=== PATIENT | male | born 1945 | race Caucasian/White ===

== ENCOUNTER 2016-12-04 12:10 | Emergency (ER) | payer MEDICARE, OTHER ==
[2016-12-04 12:15] VITALS: BP 135/77
--- NOTE | 2016-12-04 12:32 | ED Physician Documentation ---
PD HPI HEENT - Stated complaint Stated Complaint: THROAT IRRITATION,SWELLING - Chief complaint Chief Complaint: Heent - History obtained from History obtained from: Patient - History of Present Illness Timing - onset: How many days ago (2-3) Timing - duration: Days Timing - details: Gradual onset, Still present Location: Throat (he is having throat irritation, cough and intermittent feeling of bronchial/throat closing/tightness. Had been Dx with bronchial spasms in the past. Not improved with Albuterol MDI in the past. He says he has some malaise feeling and did not have particular allergen exposure (was not doing yardwork, etc).) Associated symptoms: Congestion, Cough. No: Fever, Swollen nodes, Facial swelling Similar symptoms before: Diagnosis (bronchial spasms, but not Dx with asthma) Recently seen: Not recently seen Review of Systems Constitutional: reports: Myalgias. denies: Fever, Chills Nose: reports: Congestion, Sinus pressure / pain Throat: denies: Sore throat (but feeling scratchy, per patient) Respiratory: reports: Cough GI: denies: Nausea, Vomiting, Diarrhea : denies: Dysuria, Frequency Skin: denies: Rash, Lesions Neurologic: denies: Generalized weakness Endocrine: denies: Weight loss PD PAST MEDICAL HISTORY - Past Medical History Cardiovascular: None Respiratory: None Neuro: None Endocrine/Autoimmune: None GI: GERD, Hiatal hernia : Benign prostate hypertrophy, Incontinence HEENT: None Psych: None Musculoskeletal: None Derm: None - Past Surgical History General: Hiatal hernia repair - Present Medications Home Medications: Ambulatory Orders Medication Instructions Recorded Confirmed Tamsulosin [Flomax] 0.4 mg PO DAILY 12/20/13 12/04/16 Aspirin 81 mg PO DAILY #30 bottle 10/03/14 12/04/16 Albuterol Sulfate [Proair Hfa 2 puffs IH QID #1 hfa.aer.ad 12/04/16 Inhaler] Dexamethasone [Decadron] 4 mg PO DAILY #5 tablet 12/04/16 Magnesium Oxide 400 mg PO DAILY #30 tablet 12/04/16 - Allergies Allergies/Adverse Reactions: Allergies Allergy/AdvReac Type Severity Reaction Status Date / Time No Known Drug Allergies Allergy Verified 12/20/13 05:33 - Social History Does the pt smoke?: No Smoking Status: Never smoker PD ED PE NORMAL - Vitals Vital signs reviewed: Yes - General General: Alert and oriented X 3, No acute distress, Well developed/nourished - HEENT HEENT: Ears normal, Moist mucous membranes, Pharynx benign - Neck Neck: Supple, no meningeal sign, No adenopathy - Cardiac Cardiac: RRR, No murmur - Respiratory Respiratory: Clear bilaterally - Abdomen Abdomen: Soft, Non tender - Derm Derm: Normal color, Warm and dry - Neuro Neuro: Alert and oriented X 3, No motor deficit, Normal speech Results - Vitals Vitals: Vital Signs - 24 hr 12/04/16 12:13 Temperature 36.9 C Heart Rate 91 Respiratory 16 Rate Blood Pressure 135/77 H O2 Saturation 96 Oxygen O2 Source Room air PD MEDICAL DECISION MAKING - ED course Complexity details: considered differential, d/w patient (he says he has had bronchial spasms with irritation/ colds at times in the past. Albuterol inhaler has not really helped in the past. He does have more URI symptoms now, so consider trying it anyway, along with steroids for irritation of URI. Could try Mag as smooth muscle relaxant. ) Departure - Departure Disposition: 01 Home, Self Care Clinical Impression: Bronchial spasms, Cough Condition: Stable Record reviewed to determine appropriate education?: Yes Instructions: ED Dyspnea Shortness of Breath Follow-Up: Gino Mojica MD [Primary Care Provider] - Prescriptions: Dexamethasone [Decadron] 4 mg PO DAILY #5 tablet Magnesium Oxide 400 mg PO DAILY #30 tablet Albuterol Sulfate [Proair Hfa Inhaler] 2 puffs IH QID #1 hfa.aer.ad Comments: Drink adequate fluids. Decadron steroid daily for 5 more days to get inflammation down. Use Albuterol inhaler 2 puffs 4 times daily for a week and added times as needed for spasms. Magnesium daily for 1-2 weeks as smooth muscle relaxant for the bronchioles. Recheck with PMD if not improved over the next several days, sooner if worsening. Discharge Date/Time: 12/04/16 13:09
[2016-12-04] MEDS ORDERED: MAGNESIUM OXIDE 400 MG TABLET PO STA (12:55)
[2016-12-04] MEDS ORDERED: DEXAMETHASONE 10 MG/ML VIAL PO STA (12:55)
[2016-12-04] MEDS ORDERED: MAGNESIUM OXIDE 400 MG TABLET PO ONE (12:59)
[2016-12-04] MEDS ORDERED: DEXAMETHASONE 10 MG/ML VIAL ONE (12:59)
[2016-12-04] MEDS ORDERED: CHERRY SYRUP 10 ML UDC PO ONE (12:59)
== END 2016-12-04 13:09 | disposition home or self-care (01) ==
LOC: ED 12:10
DX: J98.01 Acute bronchospasm (principal); J06.9 Acute upper respiratory infection, unspecified; Z79.82 Long term (current) use of aspirin
CPT/HCPCS: 99283; A9270

== ENCOUNTER 2017-07-16 15:14 | Outpatient (CLI) | payer MEDICARE, OTHER | END 2017-07-16 15:15 | disposition critical access hospital (66) | LOC: EMS 15:14 | PROVIDERS: ATTEND Surgery | DX: Z04.1 Encounter for examination and observation following transport accident (principal); V49.40XA Driver injured in collision with unspecified motor vehicles in traffic accident, initial encounter; Y92.414 Local residential or business street as the place of occurrence of the external cause | CPT/HCPCS: A0425; A0429 ==

== ENCOUNTER 2017-07-16 15:36 | Emergency (ER) | payer MEDICARE, OTHER ==
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
[2017-07-16] MEDS ORDERED: LORazepam 0.5 MG TABLET PO STA (16:45)
[2017-07-16] MEDS ORDERED: ACETAMINOPHEN 325 MG TABLET PO STA (16:45)
[2017-07-16 17:43] VITALS: BP 137/100
== END 2017-07-16 17:40 | disposition home or self-care (01) ==
LOC: EDBD → EDUNIT# → ED 15:36
DX: Z04.1 Encounter for examination and observation following transport accident (principal); V43.52XA Car driver injured in collision with other type car in traffic accident, initial encounter
CPT/HCPCS: 99282; 99283; A9270

== ENCOUNTER 2018-02-06 20:46 | Outpatient (CLI) | payer MEDICARE, OTHER ==
--- NOTE | 2018-02-07 03:25 | XRAY Report ---
Reason: OTHER CHEST PAIN R07.89 Procedure Date: 02/06/2018 Accession Number: [id number] / [id number] Procedure: XR - Chest 2 View X-Ray CPT Code: 30924 FULL RESULT: EXAM: CHEST RADIOGRAPHY EXAM DATE: 02/06/2018 09:01 PM. CLINICAL HISTORY: OTHER CHEST PAIN R07. 89. COMPARISON: 07/11/2007. TECHNIQUE: 2 views. FINDINGS: Lungs/Pleura: No focal opacities evident. No pleural effusion. No pneumothorax. Normal volumes. Mediastinum: Heart and mediastinal contours are unremarkable. Other: Posterior left diaphragmatic eventration. IMPRESSION: No evidence of acute cardiopulmonary disease. RADIA
== END 2018-02-06 20:47 | disposition home or self-care (01) ==
LOC: DI 20:46
PROVIDERS: ATTEND Family Medicine
DX: R07.89 Other chest pain (principal)
CPT/HCPCS: 71046

== ENCOUNTER 2018-10-26 22:48 | Emergency (ER) | payer MEDICARE, OTHER ==
[2018-10-26 22:57] VITALS: BP 169/89
--- NOTE | 2018-10-26 23:32 | ED Physician Documentation ---
PD HPI UPPER EXT INJURY - Stated complaint Stated Complaint: HEAD INJ - Chief complaint Chief Complaint: Laceration - History obtained from History obtained from: Patient - History of Present Illness Location: Right (thumb) Type of injury: Puncture wound Where injury occurred: Home Timing - onset: How many weeks ago (1) Timing - duration: Days Timing - details: Gradual onset Improved by: Rest Worsened by: Moving, Palpating Associated symptoms: Swelling. No: Weakness, Numbness Similar symptoms before: Has not had sx before Recently seen: Not recently seen - Additonal information Additional information: c/o increasing pain, swelling right thumb x few days. one week ago, a sliver from a piece of particle board punctured into his right thumb at the proximal nail fold. he was able to remove the sliver but has had increasing pain and swelling past 2-3 days Review of Systems Constitutional: reports: Reviewed and negative Skin: reports: Reviewed and negative Musculoskeletal: reports: Extremity pain, Extremity swelling Neurologic: denies: Focal weakness, Numbness PD PAST MEDICAL HISTORY - Past Medical History Past Medical History: Yes Cardiovascular: None Respiratory: None Endocrine/Autoimmune: None GI: GERD, Hiatal hernia : Benign prostate hypertrophy, Incontinence HEENT: None Psych: None Musculoskeletal: None Derm: None - Past Surgical History Past Surgical History: Yes General: Hiatal hernia repair - Present Medications Home Medications: Ambulatory Orders Medication Instructions Recorded Confirmed Tamsulosin [Flomax] 0.4 mg PO DAILY 12/20/13 10/26/18 Aspirin 81 mg PO DAILY #30 bottle 10/03/14 10/26/18 Cephalexin [Keflex] 500 mg PO Q6H #28 capsule 10/26/18 Hydrocodone/Acetaminophen 1 - 2 each PO Q6H PRN #14 tablet 10/26/18 [Hydrocodon-Acetaminophen 5-325] - Allergies Allergies/Adverse Reactions: Allergies Allergy/AdvReac Type Severity Reaction Status Date / Time No Known Drug Allergies Allergy Verified 10/26/18 22:57 - Social History Does the pt smoke?: No Smoking Status: Never smoker Does the pt drink ETOH?: No Does the pt have substance abuse?: No - Immunizations Immunizations are current?: No Immunizations: TDAP >10years/unknown - POLST Patient has POLST: No PD ED PE NORMAL - Vitals Vital signs reviewed: Yes - General General: Alert and oriented X 3, No acute distress, Well developed/nourished - Derm Derm: Warm and dry PD ED PE EXPANDED - Extremities Extremities: Other (mild erythema, swelling, moderate tenderness right thumb predominantly at lateral corner of proximal nail fold. no FB visualized including with transillumination and magnifying lens (from otoscope)) Results - Vitals Vitals: Oxygen O2 Source Room air PD MEDICAL DECISION MAKING - ED course Complexity details: considered differential, d/w patient Departure - Departure Disposition: 01 Home, Self Care Clinical Impression: Infection of thumb Condition: Good Instructions: ED Fingernail Infec Follow-Up: Gino Mojica MD [Primary Care Provider] - (within 3 days ) Prescriptions: Cephalexin [Keflex] 500 mg PO Q6H #28 capsule Hydrocodone/Acetaminophen [Hydrocodon-Acetaminophen 5-325] 1 - 2 each PO Q6H PRN #14 tablet PRN Reason: pain Discharge Date/Time: 10/26/18 23:50
[2018-10-26] MEDS ORDERED: cephALEXin 250 MG CAPSULE PO STA (23:35)
[2018-10-26] MEDS ORDERED: IBUPROFEN 600 MG TABLET PO STA (23:35)
[2018-10-26] MEDS ORDERED: HYDROcod/ACET 5/325 Prepack 4 PO STA (23:35)
[2018-10-26] MEDS ORDERED: TETANUS/DIPHTHERIA/PERTUSSIS 0.5 ML SYRINGE IM ONE (23:37)
== END 2018-10-26 23:50 | disposition home or self-care (01) ==
LOC: ED 22:48
DX: L08.9 Local infection of the skin and subcutaneous tissue, unspecified (principal)
CPT/HCPCS: 90471; 90715; 99283; A9270

== ENCOUNTER 2019-07-22 12:19 | Outpatient (CLI) | payer MEDICARE, OTHER ==
--- NOTE | 2019-07-23 00:22 | XRAY Report ---
Reason: ACUTE BRONCHITIS Procedure Date: 07/22/2019 Accession Number: [id number] / [id number] Procedure: XRN - Chest 2 View X-Ray CPT Code: 83976 Final Report FULL RESULT: EXAM: CHEST RADIOGRAPHY EXAM DATE: 07/22/2019 12:42 PM. CLINICAL HISTORY: ACUTE BRONCHITIS. COMPARISON: CHEST 2 VIEW 02/06/2018 8:51 PM. TECHNIQUE: 2 views. FINDINGS: Lungs/Pleura: There appears to be mild right middle lobe airspace disease, could represent mild pneumonia. No consolidation, pleural effusion or pneumothorax. Mediastinum: Heart and mediastinal contours are unremarkable. Other: Mild elevation left hemidiaphragm again noted. IMPRESSION: There appears to be mild right middle lobe airspace disease, could represent mild pneumonia. RADIA
== END 2019-07-22 12:20 | disposition home or self-care (01) ==
LOC: DI.N 12:19
PROVIDERS: ATTEND Internal Medicine
DX: J20.9 Acute bronchitis, unspecified (principal); R91.8 Other nonspecific abnormal finding of lung field
CPT/HCPCS: 71046

== ENCOUNTER 2019-12-20 03:09 | Outpatient (CLI) | payer MEDICARE, OTHER | END 2019-12-20 03:10 | disposition critical access hospital (66) | LOC: EMS 03:09 | PROVIDERS: ATTEND Surgery | DX: R10.31 Right lower quadrant pain (principal) | CPT/HCPCS: A0425; A0429 ==

== ENCOUNTER 2019-12-20 03:28 | Emergency (ER) | payer MEDICARE, OTHER ==
--- NOTE | 2019-12-20 03:17 | ED Physician Documentation ---
History of Present Illness - Stated complaint Stated Complaint: RLQ PAIN - History obtained from History obtained from: Patient (The patient is a 74-year-old male who arrives by ambulance with a chief complaint of right lower quadrant pain and thinks he has appendicitis.He denies any other complaints.) Review of Systems Constitutional: reports: Reviewed and negative Eyes: reports: Reviewed and negative Ears: reports: Reviewed and negative Nose: reports: Reviewed and negative Throat: reports: Reviewed and negative Cardiac: reports: Reviewed and negative Respiratory: reports: Reviewed and negative GI: reports: Abdominal Pain : reports: Reviewed and negative Skin: reports: Reviewed and negative Musculoskeletal: reports: Reviewed and negative Neurologic: reports: Reviewed and negative Psychiatric: reports: Reviewed and negative Endocrine: reports: Reviewed and negative Immunocompromised: reports: Reviewed and negative PD PAST MEDICAL HISTORY - Present Medications Home Medications: Ambulatory Orders Medication Instructions Recorded Confirmed Tamsulosin [Flomax] 0.4 mg PO DAILY 12/20/13 12/20/19 Aspirin 81 mg PO DAILY #30 bottle 10/03/14 12/20/19 - Allergies Allergies/Adverse Reactions: Allergies Allergy/AdvReac Type Severity Reaction Status Date / Time No Known Drug Allergies Allergy Verified 12/20/19 03:36 PD ED PE NORMAL - Vitals Vital signs reviewed: Yes - General General: Alert and oriented X 3, No acute distress - HEENT HEENT: PERRL - Neck Neck: Supple, no meningeal sign - Cardiac Cardiac: RRR, No murmur - Respiratory Respiratory: Clear bilaterally - Abdomen Abdomen: Normal bowel sounds, Soft, Non distended, Other (Tenderness in the right lower quadrant.No peritoneal signs.) - Male Male : Other (Circumcised, testiclesDescended bilaterally. Normal cremaster no blood at the urethral meatus no inguinal lymphadenopathy negative for hernias.) - Derm Derm: Warm and dry - Extremities Extremities: No deformity - Neuro Neuro: Alert and oriented X 3 - Psych Psych: Normal mood, Normal affect Results - Vitals Vitals: Vital Signs - 24 hr 12/20/19 12/20/19 12/20/19 03:36 03:38 04:47 Temperature 36.9 C Heart Rate 79 80 74 Respiratory 18 18 16 Rate Blood Pressure 165/91 H 165/91 H 143/92 H O2 Saturation 98 98 100 Oxygen O2 Source Room air - Labs Labs: Laboratory Tests 12/20/19 12/20/19 12/20/19 02:45 02:45 02:45 WBC 5.7 RBC 4.40 L Hgb 13.7 L Hct 41.2 L MCV 93.6 MCH 31.1 H MCHC 33.3 RDW 12.6 Plt Count 156 MPV 9.9 Neut # (Auto) 2.8 Lymph # (Auto) 2.2 [place] # (Auto) 0.5 Eos # (Auto) 0.1 Baso # (Auto) 0.1 Absolute Nucleated RBC 0.00 Nucleated RBC % 0.0 PT 14.3 H INR 1.3 H APTT 30.2 Sodium 139 Potassium 3.6 Chloride 100 L Carbon Dioxide 26 Anion Gap 13.0 BUN 23 H Creatinine 0.9 Estimated GFR (MDRD) 82 L Glucose 114 H Lactic Acid Calcium 8.6 Total Bilirubin 0.3 AST 14 ALT 14 Alkaline Phosphatase 57 Total Creatine Kinase 86 Total Protein 6.3 L Albumin 4.0 Globulin 2.3 Albumin/Globulin Ratio 1.7 Lipase 35 Urine Color Urine Clarity Urine pH Ur Specific [place] Urine Protein Urine Glucose (UA) Urine Ketones Urine Occult Blood Urine Nitrite Urine Bilirubin Urine Urobilinogen Ur Leukocyte Esterase Ur Microscopic Review Urine Culture Comments 12/20/19 12/20/19 02:45 04:50 WBC RBC Hgb Hct MCV MCH MCHC RDW Plt Count MPV Neut # (Auto) Lymph # (Auto) [place] # (Auto) Eos # (Auto) Baso # (Auto) Absolute Nucleated RBC Nucleated RBC % PT INR APTT Sodium Potassium Chloride Carbon Dioxide Anion Gap BUN Creatinine Estimated GFR (MDRD) Glucose Lactic Acid 1.6 Calcium Total Bilirubin AST ALT Alkaline Phosphatase Total Creatine Kinase Total Protein Albumin Globulin Albumin/Globulin Ratio Lipase Urine Color YELLOW Urine Clarity CLEAR Urine pH 7.0 Ur Specific [place] 1.015 Urine Protein NEGATIVE Urine Glucose (UA) NEGATIVE Urine Ketones NEGATIVE Urine Occult Blood NEGATIVE Urine Nitrite NEGATIVE Urine Bilirubin NEGATIVE Urine Urobilinogen 1 (NORMAL) Ur Leukocyte Esterase NEGATIVE Ur Microscopic Review NOT INDICATED Urine Culture Comments NOT INDICATED PD MEDICAL DECISION MAKING - ED course Complexity details: reviewed old records, reviewed results, re-evaluated patient (ct scan shows Similar small fat-containing proximal right inguinal herniaAnd constipation), considered differential (hernia, Nephrolithiasis, urinary retention, appendicitis), d/w patient Departure - Departure Disposition: 01 Home, Self Care Clinical Impression: RLQ abdominal pain, Right inguinal hernia Condition: Stable Instructions: ED Hernia Inguinal Follow-Up: Gino Mojica MD [Primary Care Provider] - Tomorrow Comments: Follow-up with your primary care provider tomorrow.
[2019-12-20 03:55] LABS: BASOPHILS # (AUTO) 0.1 10^3/uL (0.0-0.1); BASOPHILS % (AUTO) 0.9 %; EOSINOPHILS # (AUTO) 0.1 10^3/uL (0.0-0.7); EOSINOPHILS % (AUTO) 2.3 %; HGB - HEMOGLOBIN 13.7 g/dL (14.0-18.0); LYMPHOCYTES # (AUTO) 2.2 10^3/uL (1.5-3.5); LYMPHOCYTES % (AUTO) 38.6 %; MEAN CORPUSCULAR HEMOGLOBIN 31.1 pg (27.0-31.0); MEAN CORPUSCULAR HGB CONC 33.3 g/dL (32.0-36.0); MEAN CORPUSCULAR VOLUME 93.6 fL (80.0-94.0); MEAN PLATELET VOLUME 9.9 fL (7.4-11.4); MONOCYTES # (AUTO) 0.5 10^3/uL (0.0-1.0); MONOCYTES % (AUTO) 9.2 %; NEUTROPHILS # (AUTO) 2.8 10^3/uL (1.5-6.6); NEUTROPHILS % (AUTO) 48.5 %; PLT - PLATELET COUNT 156 10^3/uL (130-450); RED CELL DISTRIBUTION WIDTH 12.6 % (12.0-15.0); WHITE BLOOD COUNT 5.7 x10^3/uL (4.8-10.8)
[2019-12-20 04:02] LABS: INR 1.3 (0.8-1.2); PT - PROTHROMBIN TIME 14.3 secs (9.9-12.6)
[2019-12-20] MEDS ORDERED: IOVERSOL 320 100 ML VIAL IVP ONE ×2 (04:02→04:59)
[2019-12-20 04:09] LABS: ALBUMIN/GLOBULIN RATIO 1.7 (1.0-2.2); BILIRUBIN,TOTAL 0.3 mg/dL (0.2-1.0); CALCIUM 8.6 mg/dL (8.5-10.3); CREATININE 0.9 mg/dL (0.6-1.2); PARTIAL THROMBOPLASTIN TIME 30.2 secs (24.9-33.3); TOTAL PROTEIN 6.3 g/dL (6.7-8.2)
[2019-12-20 04:55] LABS: BILIRUBIN,URINE NEGATIVE (NEGATIVE); GLUCOSE, URINE (UA) NEGATIVE (NEGATIVE); KETONES,URINE (UA) NEGATIVE (NEGATIVE); LEUKOCYTE ESTERASE, URINE NEGATIVE (NEGATIVE); NITRITE,URINE NEGATIVE (NEGATIVE); OCCULT BLOOD,URINE NEGATIVE (NEGATIVE); PROTEIN,URINE NEGATIVE (NEGATIVE); UROBILINOGEN,URINE 1 (NORMAL) E.U./dL (NORMAL)
[2019-12-20 04:56] LABS: CLARITY,URINE CLEAR (CLEAR)
[2019-12-20 05:44] VITALS: BP 121/78
--- NOTE | 2019-12-20 09:30 | CT Report ---
PROCEDURE: Abdomen/Pelvis W INDICATIONS: RLQ PAIN CONTRAST: IV CONTRAST: Optiray 320 ml: 100 PO CONTRAST: *NO PO CONTRAST TECHNIQUE: After the administration of oral and intravenous contrast, 5 mm thick sections acquired from the diap hragms to the symphysis. 5 mm thick coronal and sagittal reformats were acquired. For radiation dos e reduction, the following was used: automated exposure control, adjustment of mA and/or kV accordin g to patient size. COMPARISON: CT abdomen pelvis 12/20/2013, ultrasound abdomen 01/31/2014 FINDINGS: Image quality: Excellent. ABDOMEN: Lung bases: Lung bases are clear. Heart size is normal. Solid organs: Liver and spleen are normal in size . Unchanged punctate low-attenuation focus within the posterior right hepatic lobe, unchanged. Gallbladder is unremarkable Biliary system is non dila lindsay. Pancreas enhances normally. No adrenal nodules. Kidneys demonstrate normal size and enhanceme nt, without hydronephrosis. There is incidental note of retroaortic left renal vein. Peritoneum and bowel: Bowel loops demonstrate normal wall thickness and caliber. No free fluid or a ir. Prominent colonic diverticula are present without associated inflammatory change. Appendix is vi sualized and is within normal limits in size. Nodes and vessels: No retroperitoneal or mesenteric adenopathy by size criteria. Aorta and inferior vena cava are normal in size. Miscellaneous: No ventral hernias. PELVIS: Genitourinary: Bladder wall thickness is normal. Prostate is enlarged. Miscellaneous: Fat-containing inguinal hernias are present. Bones: No suspicious bony lesions. No vertebral body compression fractures. IMPRESSION: 1. Appendix is normal. 2. Diverticulosis. 3. Fat-containing inguinal hernias. It is noted that the right fat-containing inguinal hernia corresp onds to marker indicating area of palpable symptom. The above findings are concordant with preliminary report. Reviewed by: Erum Gray MD on 12/20/2019 9:28 AM PDT Approved by: Erum Gray MD on 12/20/2019 9:28 AM PDT Station ID: [id number]
== END 2019-12-20 05:49 | disposition home or self-care (01) ==
LOC: EDUNIT# → ED 03:28
DX: R10.31 Right lower quadrant pain (principal); K40.90 Unilateral inguinal hernia, without obstruction or gangrene, not specified as recurrent; Z79.82 Long term (current) use of aspirin
CPT/HCPCS: 36415; 74177; 80053; 81003; 82550; 83605; 83690; 85025; 85610; 85730; 99283; 99284; Q9967; 80320; 81001; 87086

== ENCOUNTER 2020-02-26 14:59 | Outpatient (CLI) | payer MEDICARE, OTHER ==
--- NOTE | 2020-02-26 16:27 | XRAY Report ---
PROCEDURE: Chest 2 View X-Ray INDICATIONS: BRONCHOSPASM TECHNIQUE: 2 view(s) of the chest. COMPARISON: Chest x-ray dated 07.22.19 FINDINGS: Surgical changes and devices: None. Lungs and pleura: No pleural effusions or pneumothorax. Lungs are clear. Mediastinum: Mediastinal contours are normal. Heart size is normal. Bones and chest wall: No suspicious bony abnormalities. Soft tissues appear unremarkable. IMPRESSION: No acute process. Reviewed by: Micheal Warren MD on 02/26/2020 4:25 PM PDT Approved by: Micheal Warren MD on 02/26/2020 4:25 PM PDT Station ID: [id number]
== END 2020-02-26 15:00 | disposition home or self-care (01) ==
LOC: DI 14:59
PROVIDERS: ATTEND Family Medicine
DX: J98.01 Acute bronchospasm (principal)
CPT/HCPCS: 71046

== ENCOUNTER 2020-09-23 14:49 | Outpatient (CLI) | payer MEDICARE, OTHER ==
--- NOTE | 2020-09-23 16:07 | XRAY Report ---
PROCEDURE: Foot 3 View RT INDICATIONS: RT FOOT PAIN TECHNIQUE: 3 views of the foot were acquired. COMPARISON: None FINDINGS: Bones: No fractures or dislocations. No suspicious bony lesions. Soft tissues: No tibiotalar joint effusion. Achilles tendon appears normal. IMPRESSION: No acute fracture. No osseous lesion. If symptoms and/or clinical suspicion for pathology continue, f urther assessment with repeat plain films, or advanced imaging (e.g., CT, MRI, or bone scan) is recom mended for further assessment. Reviewed by: Micheal Warren MD on 09/23/2020 4:05 PM PDT Approved by: Micheal Warren MD on 09/23/2020 4:05 PM PDT Station ID: [id number]
== END 2020-09-23 14:50 | disposition home or self-care (01) ==
LOC: DI.N 14:49
PROVIDERS: ATTEND Family Medicine
DX: M72.2 Plantar fascial fibromatosis (principal)

== ENCOUNTER 2021-09-11 08:00 | Outpatient (CLI) | payer MEDICARE, OTHER | END 2021-09-11 23:59 | disposition home or self-care (01) | LOC: LAB.N 08:00 | PROVIDERS: ATTEND Nurse Practitioner | DX: R31.9 Hematuria, unspecified (principal) | CPT/HCPCS: 87086 ==

== ENCOUNTER 2022-11-20 08:00 | Outpatient (CLI) | payer MEDICARE, OTHER ==
[2022-11-20] MEDS ORDERED: iohexoL-300 100 ML VIAL ONE (14:24)
[2022-11-20 14:39] LABS: ALBUMIN 4.1 g/dL (3.2-5.5); ALBUMIN/GLOBULIN RATIO 1.5 (1.0-2.2); BILIRUBIN,TOTAL 0.7 mg/dL (0.2-1.0); CALCIUM 8.3 mg/dL (8.5-10.3); CREATININE 0.9 mg/dL (0.6-1.2); POTASSIUM 4.2 mmol/L (3.5-5.0); TOTAL PROTEIN 6.8 g/dL (6.7-8.2)
== END 2022-11-20 23:59 | disposition home or self-care (01) ==
LOC: LAB 08:00
PROVIDERS: ATTEND Urology
DX: N28.89 Other specified disorders of kidney and ureter (principal)
CPT/HCPCS: 36415; 80053

== ENCOUNTER 2022-11-27 13:30 | Outpatient (CLI) | payer MEDICARE, OTHER ==
[2022-11-27] MEDS ORDERED: iohexoL-300 100 ML VIAL ONE (13:38)
[2022-11-27] MEDS ORDERED: iohexoL-300 100 ML VIAL IVP ONE (15:14)
--- NOTE | 2022-11-27 17:13 | CT Report ---
PROCEDURE: ABDOMEN W/WO INDICATIONS: RENAL MASS CONTRAST: 140mL Omni 300 TECHNIQUE: [address] scan of the kidneys was performed. Non-contrast and multiphasic contrast images were recor ded and evaluated at appropriate window settings. Reformats: coronal and sagittal. For radiation dose reduction, the following was used: automated exposure control, adjustment of mA and/or kV according to patient size. COMPARISON: CT FINDINGS: Image quality: Excellent. Genitourinary: On the inferior pole of the right kidney, there is a 1.6 cm exophytic lesion with rel atively homogeneous attenuation, but with delayed enhancement. No evidence of extension beyond the pa rarenal fascia. No invasion of the renal vein. This was present in 2019, but demonstrate homogeneous low attenuation and was too small to characterize at the time (measuring 1 cm). OTHER: Lung bases and heart: Unremarkable. Liver: No solid mass. Gallbladder and biliary tree: No radiopaque stones or wall thickening. No biliary dilation. Spleen: No splenomegaly. Pancreas: No pancreatic ductal dilation. Adrenals: No adrenal nodule. Bowel and peritoneum: No bowel distension. No pathologic free fluid. Diverticulosis without evidence of diverticulitis. Lymph nodes: No central or retroperitoneal adenopathy. Vessels: No infrarenal aortic aneurysm. Bones: No aggressive osseous abnormality. Other: No significant ventral hernia. IMPRESSION: Exophytic lesion on the inferior pole of the right kidney, there is a 1.6 and meter exophytic lesion with delayed enhancement, suggesting papillary renal cell carcinoma. No evidence of perirenal fascia invasion or renal vein invasion. No adenopathy. Other chronic findings as above. Reviewed by: Rios Felipe on 11/27/2022 5:12 PM PDT Approved by: Rios Felipe on 11/27/2022 5:12 PM PDT Station ID: [id number]
== END 2022-11-27 13:31 | disposition home or self-care (01) ==
LOC: DI 13:30
PROVIDERS: ATTEND Urology
DX: N28.9 Disorder of kidney and ureter, unspecified (principal); K57.30 Diverticulosis of large intestine without perforation or abscess without bleeding
CPT/HCPCS: 74170; Q9967

== ENCOUNTER 2023-02-01 15:07 | Outpatient (CLI) | payer MEDICARE, OTHER ==
--- NOTE | 2023-02-01 20:39 | XRAY Report ---
PROCEDURE: Chest 2 View X-Ray INDICATIONS: COPD TECHNIQUE: 2 views of the chest were acquired. COMPARISON: Chest x-ray 02/26/2020 FINDINGS: Surgical changes and devices: None. Lungs and pleura: No pleural effusions or pneumothorax. Lungs are clear. Elevated left hemidiaphr agm. Multicentric mild hyperexpansion suggestive of COPD. Mediastinum: Mediastinal contours appear normal. Heart size is normal. Bones and chest wall: No suspicious bony lesions. Overlying soft tissues appear unremarkable. IMPRESSION: No acute cardiopulmonary process. Reviewed by: Erum Gray MD on 02/01/2023 8:37 PM PDT Approved by: Erum Gray MD on 02/01/2023 8:37 PM PDT Station ID: [id number]
== END 2023-02-01 15:08 | disposition home or self-care (01) ==
LOC: DI 15:07
PROVIDERS: ATTEND Urology
DX: J44.9 Chronic obstructive pulmonary disease, unspecified (principal)

== ENCOUNTER 2023-07-22 14:00 | Outpatient (CLI) | payer MEDICARE, OTHER ==
--- NOTE | 2023-07-24 11:51 | Ultrasound Report ---
PROCEDURE: Renal (Retroperitoneal) INDICATIONS: RENAL MASS TECHNIQUE: Real-time scanning was performed of the retroperitoneal organs, with image documentation. COMPARISON: None. FINDINGS: Kidneys: Kidneys are normal in size. Right kidney measures 11.6 cm long; left kidney measures 12.3 cm long. Right renal cortical thickness is 1.0 cm; left renal cortical thickness is 0.9 cm. There is a hypoechoic focus within the superior aspect of the right kidney measuring approximately 3.1 cm. It is identified in the medial aspect. There is no directly identified correlated on CT exam to this re gion. The focus in question in the right kidney on CT is located in the inferior pole. This does not appear to be demonstrated on ultrasound images. Bladder: Pre-void bladder volume is 245 mL. Post-void residual is 80 mL. Pre-void images demonstra te no intraluminal masses or stones. On pre-void images, bilateral ureteral jets are noted with colo r Doppler interrogation. (Of note, ureteral jets may not be detectable in up to 25% of cases due to insufficient differences in specific gravity between ureteral and bladder urine). Prostate gland is enlarged. Miscellaneous: No free abdominal fluid. IMPRESSION: Inferior right renal pole mass identified on CT was not clearly identified on current ultrasound. In addition, a focus of decreased echogenicity was identified in the superior right renal pole not corre sponding to defined abnormality on CT. It is recommended that patient return for repeat imaging for b mary correlation between ultrasound and CT findings. Reviewed by: Erum Gray MD on 07/24/2023 11:50 AM [facility] Approved by: Erum Gray MD on 07/24/2023 11:50 AM PST Station ID: [id number]
== END 2023-07-22 14:01 | disposition home or self-care (01) ==
LOC: DI 14:00
PROVIDERS: ATTEND Urology
DX: N28.89 Other specified disorders of kidney and ureter (principal)

== ENCOUNTER 2023-08-02 12:12 | Outpatient (CLI) | payer MEDICARE, OTHER ==
[2023-08-02 17:48] LABS: BASOPHILS # (AUTO) 0.1 10^3/uL (0.0-0.1); EOSINOPHILS # (AUTO) 0.1 10^3/uL (0.0-0.7); EOSINOPHILS % (AUTO) 2.5 %; HCT - HEMATOCRIT 43.9 % (42.0-52.0); LYMPHOCYTES # (AUTO) 1.7 10^3/uL (1.5-3.5); LYMPHOCYTES % (AUTO) 34.4 %; MEAN CORPUSCULAR HEMOGLOBIN 30.2 pg (27.0-31.0); MEAN CORPUSCULAR HGB CONC 31.9 g/dL (32.0-36.0); MEAN CORPUSCULAR VOLUME 94.6 fL (80.0-94.0); MONOCYTES # (AUTO) 0.4 10^3/uL (0.0-1.0); MONOCYTES % (AUTO) 7.5 %; NEUTROPHILS # (AUTO) 2.6 10^3/uL (1.5-6.6); NEUTROPHILS % (AUTO) 54.2 %; PLT - PLATELET COUNT 184 10^3/uL (130-450); RED BLOOD COUNT 4.64 10^6/uL (4.70-6.10); RED CELL DISTRIBUTION WIDTH 12.8 % (12.0-15.0); WHITE BLOOD COUNT 4.8 x10^3/uL (4.8-10.8)
[2023-08-02 18:06] LABS: ALBUMIN 4.4 g/dL (3.2-5.5); ALBUMIN/GLOBULIN RATIO 1.8 (1.0-2.2); ALKALINE PHOSPHATASE 61 IU/L (42-121); ALT ALANINE AMINOTRANSFERASE 15 IU/L (10-60); AST ASPARTATE AMINOTRANSFERASE 14 IU/L (10-42); BILIRUBIN,TOTAL 0.7 mg/dL (0.2-1.0); BUN - BLOOD UREA NITROGEN 21 mg/dL (6-20); CARBON DIOXIDE - CO2 29 mmol/L (21-32); CHLORIDE 105 mmol/L (101-111); CHOL/HDL RATIO 3.4 (<5.0); CHOLESTEROL 192 mg/dL; CREATININE 0.7 mg/dL (0.6-1.3); GFR - MDRD 109 (>89); GLUCOSE 98 mg/dL (74-104); HDL CHOLESTEROL 57 mg/dL; LDL CHOLESTEROL,CALCULATED 118 mg/dL; LDL/HDL RATIO 2.1 (<3.6); MAGNESIUM 1.7 mg/dL (1.7-2.3); POTASSIUM 3.9 mmol/L (3.5-4.5); SODIUM 138 mmol/L (135-145); TOTAL PROTEIN 6.8 g/dL (6.4-8.9); TRIGLYCERIDES 84 mg/dL (48-352); VLDL CHOLESTEROL 17 mg/dL
[2023-08-02 18:20] LABS: THYROID STIMULATING HORMONE 1.71 uIU/mL (0.34-5.60)
== END 2023-08-02 12:13 | disposition home or self-care (01) ==
LOC: LAB.N 12:12
PROVIDERS: ATTEND Family Medicine
DX: I10 Essential (primary) hypertension (principal); G24.1 Genetic torsion dystonia; E53.8 Deficiency of other specified B group vitamins; E55.9 Vitamin D deficiency, unspecified; I49.9 Cardiac arrhythmia, unspecified; Z12.5 Encounter for screening for malignant neoplasm of prostate; Z79.899 Other long term (current) drug therapy; R00.2 Palpitations
CPT/HCPCS: 36415; 80053; 80061; 82306; 82607; 82746; 83735; 84439; 84443; 84481; 85025; G0103; 83721; 84153

== ENCOUNTER 2024-01-30 11:43 | Outpatient (CLI) | payer MEDICARE, OTHER ==
[2024-01-30] MEDS ORDERED: GADOTERATE MEGLUMINE 10 MMOL/20 ML VIAL ONE (12:08)
[2024-01-30 12:09] LABS: CREATININE 0.8 mg/dL (0.6-1.3)
[2024-01-30] MEDS: GADOTERATE MEGLUMINE 10 MMOL/20 ML VIAL IVP ONE (13:29)
--- NOTE | 2024-01-30 17:06 | MRI Report ---
PROCEDURE: Abdomen W/WO INDICATIONS: RENAL MASS CONTRAST: CLARISCAN 18.2 ML TECHNIQUE: Coronal ultra fast SE, axial 2D spoiled GE in- and [id number]; axial breath-hold T2 fast SE. Dynam ic axial ultra fast GE during the administration of contrast; post-contrast coronal ultra fast GE or 2D spoiled GE with fat saturation from the hepatic dome to the iliac crests. Optional diffusion weig hted imaging and ADC may be performed. COMPARISON: Ultrasound 07/22/2023, CT 11/27/2022 FINDINGS: Image quality: Suboptimal due to motion artifact. Lung bases and heart: Unremarkable. Liver: No solid mass. Gallbladder and biliary tree: No radiopaque stones or wall thickening. No biliary dilation. Spleen: No splenomegaly. Pancreas: No pancreatic ductal dilation. Adrenals: No adrenal nodule. Kidneys and ureters: If the inferior pole of the right kidney, there is an exophytic mass which demon strates delayed enhancement, T2 isointense signal. The mass does not extend beyond the pararenal fasc ia. There is no renal vein invasion. Bowel and peritoneum: No bowel distension. No pathologic free fluid. Diverticulosis without evidence of diverticulitis. Lymph nodes: No central or retroperitoneal adenopathy. Vessels: No infrarenal aortic aneurysm. Bones: No aggressive osseous abnormality. Other: No significant ventral hernia. 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 No evidence of renal vein invasion. No extension beyond the renal fascia. Reviewed by: Rios Felipe MD on 01/30/2024 5:05 PM PDT Approved by: Rios Felipe MD on 01/30/2024 5:05 PM PDT Station ID: [id number]
== END 2024-01-30 11:44 | disposition home or self-care (01) ==
LOC: LAB 11:43
PROVIDERS: ATTEND Urology
DX: N28.89 Other specified disorders of kidney and ureter (principal)
CPT/HCPCS: 36415; 74183; 82565; A9575